=== PATIENT | female | born 1940 | race Caucasian/White ===

== ENCOUNTER 2021-08-18 08:56 | Outpatient (RCR) | payer MEDICARE, BC, SELFPAY | END 2021-11-21 10:32 | disposition home or self-care (01) | PROVIDERS: PCP Physician Assistant Medical; Visit Provider Orthopaedic Surgery Sports Medicine | DX: M51.36 Other intervertebral disc degeneration, lumbar region (principal); Z51.89 Encounter for other specified aftercare | CPT/HCPCS: 97110; 97140; 97162 ==

== ENCOUNTER 2021-09-21 14:09 | Outpatient (CLI) | payer MEDICARE, BC, SELFPAY ==
--- NOTE | 2021-09-21 14:00 | CRLHL7_ITS ---
For Patients: As a result of the Century Cures Act, medical imaging exams and procedure reports are released immediately into your electronic medical record. You may view this report before your referring provider. If you have questions, please contact your health care provider. Indication: LLQ pain Technique: Postcontrast CT abdomen and pelvis. 63 cc Isovue 370 intravenous contrast and oral water. Please note that all CT scans at this facility use dose modulation, iterative reconstruction, and/or weight-based dosing when appropriate to reduce radiation dose to as low as reasonably achievable. Comparison: 08/23/2016 Findings: Mild scarring within both lung bases without pleural effusion. Mild motion artifact is present. Simple cyst within the medial liver measuring 1.5 cm, unchanged. Additional simple cyst within the inferior liver measuring 5 millimeters. Similar thickening of the left adrenal gland. Normal right adrenal gland. Normal kidneys. Spleen normal. Gallbladder normal. Scoliotic deformity. Atherosclerotic disease. No aneurysm. Bilateral hip replacement hardware. Stable subchondral cyst in the left acetabulum. Multilevel degenerative changes and facet degeneration. Similar appearance of the pancreas with area of decreased density associated with the inferior pancreatic head. This is considered incidental. No bowel obstruction. Excess colonic stool within the redundant colon. No diverticulitis. Impression: Probable constipation causing the patient`s symptoms. No mechanical bowel obstruction or inflammation. Please note that all CT scans at this facility use dose modulation, iterative reconstruction, and/or weight-based dosing when appropriate to reduce radiation dose to as low as reasonably achievable. Dictated by Markell Freeman MD @ 09/22/2021 9:29:13 AM (Electronically Signed)
[2021-09-21 14:44] LABS: Creatinine* 0.9 mg/dL (0.5-1.5); Estimated Glomerular Filt Rate 65 ml/min
== END 2021-09-21 14:10 | disposition home or self-care (01) ==
LOC: CT 14:11
PROVIDERS: PCP Physician Assistant Medical; Visit Provider Physician Assistant Medical
DX: R10.32 Left lower quadrant pain (principal); K59.00 Constipation, unspecified
CPT/HCPCS: 36415; 74177; 82565; Q9967

== ENCOUNTER 2021-12-12 09:56 | Outpatient (CLI) | payer MEDICARE, BC, SELFPAY ==
[2021-12-12 15:51] LABS: Albumin* 4.3 g/dL (3.3-5.0)
[2021-12-12 15:52] LABS: Chloride* 103 mmol/L (96-114); Potassium* 5.4 mmol/L (3.6-5.1); Sodium* 139 mmol/L (135-149)
[2021-12-12 15:54] LABS: Aspartate Amino Transferase* 32 U/L (12-35); Bilirubin Total* 0.4 mg/dL (0.1-1.5); Carbon Dioxide* 29 mmol/L (20-32); Cholesterol* 215 mg/dL (90-199); Creatinine* 0.9 mg/dL (0.5-1.5); Estimated Glomerular Filt Rate 65 ml/min; Total Protein* 6.5 g/dL (6.0-8.3)
[2021-12-12 15:55] LABS: Alanine Aminotransferase* 23 U/L (4-35); Alkaline Phosphatase* 64 U/L (40-150); Blood Urea Nitrogen* 27 mg/dL (7-30); Calcium* 9.2 mg/dL (8.4-10.6); Glucose* 83 mg/dL (60-115); HDL Cholesterol* 75 mg/dL (>=50); LDL Cholesterol Calculated 129 mg/dL (<100); Triglycerides* 55 mg/dL (40-149)
[2021-12-12 16:52] LABS: Vitamin D 25 Hydroxy* 84 ng/mL (30-80)
== END 2021-12-12 09:57 | disposition home or self-care (01) ==
PROVIDERS: PCP Physician Assistant Medical; Visit Provider Physician Assistant Medical
DX: I10 Essential (primary) hypertension (principal); M81.0 Age-related osteoporosis without current pathological fracture; M19.049 Primary osteoarthritis, unspecified hand; Z13.6 Encounter for screening for cardiovascular disorders
CPT/HCPCS: 80053; 80061; 82306; 84443

== ENCOUNTER 2021-12-21 14:21 | Outpatient (CLI) | payer MEDICARE, BC, SELFPAY ==
--- NOTE | 2021-12-21 14:30 | CRLHL7_ITS ---
For Patients: As a result of the Century Cures Act, medical imaging exams and procedure reports are released immediately into your electronic medical record. You may view this report before your referring provider. If you have questions, please contact your health care provider. DXA BONE MINERAL DENSITY STUDY Reason for exam: Screening. Current height (in): 65. Weight (lb): 127. Menopause age: 46. Ethnicity: White. 1. Have you had a previous hip or vertebral fracture? No. 2. Have you had any fractures during your adult life which did not result from significant trauma (e.g., auto accident)? Yes. 3. Did either of your parents have a hip fracture? No. 4. Do you smoke? No. 5. Have you ever taken Glucocorticoids? No. 6. Do you have rheumatoid arthritis? No. 7. Do you have secondary osteoporosis? No. 8. Do you drink 3 or more alcoholic drinks per day? No. 9. Are you being treated for osteoporosis? No. 10. Have you ever taken any of the following medications: Actonel, Evista, Fosamax, Miacalcin, Reclast, Boniva, Forteo, HRT (i.e., estrogen/hormone therapy), Protelos, Prolia, Vitamin D, Calcium, other ??? please specify. ANSWER: Yes, Fosamax, vitamin D, and calcium. 11. Do you have any of the following medical conditions: Anorexia or bulimia, asthma or emphysema, end stage renal disease, hyperparathyroidism, any seizure disorders, cancer, inflammatory bowel diseases, hysterectomy, other ??? please specify. ANSWER: Yes, hysterectomy. 12. What was your maximum height (inches)? 66. 13. Do you perform weight bearing exercise regularly? No. 14. Do you regularly consume dairy products? Yes. 15. Do you drink caffeinated beverages? Yes. If female: 16. At what age did your period start? 14. 17. Are you premenopausal? No. 18. How many full-term pregnancies have you had? 2. 19. Have you ever missed your period for more than 6 months in a row (not including or menopause)? No. TECHNIQUE: Bone mineral density study was performed using the [employer]. FINDINGS: The results of the study expressed as bone mineral density (BMD) are as follows: Lumbar spine L1: BMD: 1.031 g/cm2. T-score: 0.4. Z-score: 2.8 Radius Right 33%: BMD: 0.567 g/cm2. T-score: -2.1. Z-score: 1.1 Left 33%: BMD: 0.548 g/cm2. T-score: -2.4. Z-score: 0.8 IMPRESSION: Osteopenia. *Comparison exams done prior to 07/2019 were performed on different unit, [facility]. COMPARISON: Compared with scan of 08/27/2019, the bone mineral density has increased by 13.3 percent at the spine and increased by 8.0 percent at the left radius. Compared with scan of 11/11/2017, the bone mineral density has increased by 2.1 percent at the spine. Markell Freeman M.D. Diagnostic Radiologist [email or web address] [place]/[email or web address]/Dictated by: Markell Freeman MD @ 12/22/2021 8:18:00 AM (Electronically Signed)
== END 2021-12-21 14:22 | disposition home or self-care (01) ==
LOC: RAD 14:22
PROVIDERS: PCP Physician Assistant Medical; Visit Provider Physician Assistant Medical
DX: Z13.820 Encounter for screening for osteoporosis (principal); M85.89 Other specified disorders of bone density and structure, multiple sites; Z78.0 Asymptomatic menopausal state
CPT/HCPCS: 77080

== ENCOUNTER 2022-02-13 06:53 | Outpatient (CLI) | payer MEDICARE, BC, SELFPAY ==
[2022-02-13 22:11] LABS: Vitamin D 25 Hydroxy* 83 ng/mL (30-80)
== END 2022-02-13 06:54 | disposition home or self-care (01) ==
PROVIDERS: PCP Physician Assistant Medical; Visit Provider Physician Assistant Medical
DX: M81.0 Age-related osteoporosis without current pathological fracture (principal)
CPT/HCPCS: 82306

== ENCOUNTER 2022-06-21 10:27 | Outpatient (CLI) | payer MEDICARE, BC, SELFPAY | END 2022-06-21 10:28 | disposition home or self-care (01) | LOC: NFLDREF 06-25 09:05 | PROVIDERS: PCP Physician Assistant Medical; Referring Provider Physician Assistant Medical; Visit Provider Physician Assistant Medical | DX: E55.9 Vitamin D deficiency, unspecified (principal); M81.0 Age-related osteoporosis without current pathological fracture | CPT/HCPCS: 82306 ==

== ENCOUNTER 2023-01-22 10:11 | Outpatient (CLI) | payer MEDICARE, BC, SELFPAY | END 2023-01-22 10:12 | disposition home or self-care (01) | LOC: NFLDREF 01-23 05:25 | PROVIDERS: PCP Physician Assistant Medical; Referring Provider Physician Assistant Medical; Visit Provider Physician Assistant Medical | DX: I10 Essential (primary) hypertension (principal); I25.2 Old myocardial infarction | CPT/HCPCS: 80053; 80061; 84443 ==

== ENCOUNTER 2023-06-18 14:45 | Emergency (ER) | payer MEDICARE, BC, SELFPAY ==
[2023-06-18 14:51] VITALS: BP 180/82; PULSE 74; RESP 18; TEMP 36.7; O2SAT 92; BMI 20.6
--- NOTE | 2023-06-18 15:15 | MR_ITS ---
Patient: YANIRA SANTIAGO Facility:?[facility] Patient ID:?[id number] Site Patient ID:?[id number]. Site :?[id number] Study:?MRI-Head W/O-06/18/2023 5:35:53 PM Ordering Physician:MICHAEL BAIN Final Report: Indication: Balance problems Technique: Multiplanar, multisequence MRI of the brain obtained without contrast. Comparison: MRI brain 06/17/2020 Findings: Mild diffuse prominence of the ventricles and cortical sulci, compatible with generalized cerebral volume loss. Scattered FLAIR hyperintense foci throughout the supratentorial white matter, typical of mild chronic microangiopathy. No acute/subacute ischemia, intracranial hemorrhage, or abnormal extra-axial fluid collection. No midline shift, hydrocephalus, or herniation. Major expected intracranial flow voids are preserved. Midline structures are unremarkable. No paranasal sinus air-fluid level or mastoid effusion. Unremarkable orbits. Impression: 1. No evidence of acute intracranial abnormality. 2. Mild generalized cerebral volume loss and mild chronic microangiopathy changes. Dictated by Avril Beard MD @ 06/18/2023 5:53:17 PM Signed by:?Avril Beard MD @06/18/2023 5:53:17 PM (Electronic Signature)
[2023-06-18 15:20] VITALS: RESP 16
[2023-06-18 15:43] LABS: Basophils Absolute Auto 0.03 K/uL (0.00-0.30); Basophils Percent Auto 0.4 % (0.0-3.0); Eosinophils Absolute Auto 0.13 K/uL (0.00-0.50); Eosinophils Percent Auto 1.6 % (0.0-7.0); Hematocrit 37.8 % (33.0-51.0); Hemoglobin* 12.3 gm/dL (12.0-16.0); Immature Granulocytes Abs Auto 0.08 K/uL (0.00-0.30); Mean Corpuscular HGB Conc 33 gm/dL (32-36); Mean Corpuscular Hemoglobin 30 pg (26-34); Mean Corpuscular Volume 93 fL (80-100); Monocytes Percent Auto 6.2 % (0.0-11.0); Neutrophils Absolute Auto 5.65 K/uL (1.7-7.0); Neutrophils Percent Auto 69.8 % (42.0-72.0); Platelet Count* 266 K/uL (140-440); RDW Coefficient of Variation % 12.4 % (11.5-15.5); Red Blood Count 4.05 m/uL (4.00-5.20); White Blood Count* 8.09 K/uL (4.50-11.00)
--- NOTE | 2023-06-18 15:43 | ED_ITS ---
HPI - General Adult General Date Seen: 06/18/23 Chief complaint: Unspecified Complaint, Adult Stated complaint: Upper L side pain, lightheaded Time Seen by Provider: 06/18/23 14:45 Source: patient, RN notes reviewed and old records reviewed Mode of arrival: ambulatory Limitations: no limitations History of Present Illness HPI narrative: Patient is an 83-year-old woman who presents on advice of the clinic for evaluation of feeling ?off today. She says ever since she woke up this morning she has felt just a little shaky, she feels like her walk is a little bit wobbly. She does have a history of vertigo and says it feels similar to that although she really does not describe any actual vertigo. She has had mild lightheadedness but has not felt faint. She denies any headache, chest pain, palpitations, shortness of breath, vomiting, diarrhea, black or bloody stools, fever or other acute problems. She has not noted any focal neurologic deficits. She tells me that a year 2 ago she had 2 hospitalizations at [facility] related to hypertension. They evaluated her for stroke and heart attack. She says that they tried to do an angiogram and were unable, but a stress test was done and was normal. She was told that she did not have evidence of stroke. She takes a baby aspirin daily, no other anticoagulation. She says blood pressure has been well controlled since that time. She does not smoke or drink. She notes that she has had some pain in her left lateral chest wall on and off for about a year, this tends to bother her when she lays on her left side primarily. She also has noted a burning type pain in both of her heels for the past few nights. This is not present during the day. She does not have a prior diagnosis of neuropathy. Related Data Home Medications Medication Instructions Recorded Confirmed acetaminophen 650 mg 1,300 mg PO Q12H PRN 09/13/21 01/24/23 tablet,extended release (Pain Relief (acetaminophen)) calcium carbonate (Calcium 600) 1,200 mg PO QDAY 09/13/21 01/24/23 multivitamin with minerals 1 tab PO QDAY 09/13/21 01/24/23 (Multiple Vitamin-Minerals tablet) vit C 250 mg-vit E 200 unit-zinc 1 tab PO BID 09/13/21 01/24/23 12.5 mg-copper 1 [id number] tablet (ICaps AREDS2 (copper citrate)) aspirin 81 mg tablet,delayed 81 mg PO QDAY 11/15/22 01/24/23 release Previous Rx's Medication Instructions Recorded nitroglycerin 0.4 mg sublingual 0.4 mg sublingual Q5-15M PRN chest 11/15/22 tablet pain #15 tabs isosorbide mononitrate 30 mg 30 mg PO QAM #90 tabs 01/02/23 tablet,extended release 24 hr spironolactone 25 mg tablet 25 mg PO QDAY #90 tabs 01/02/23 metoprolol tartrate 25 mg tablet 12.5 mg (1/2 x 25 mg) PO BID #90 01/15/23 tabs lisinopril 10 mg tablet 10 mg PO QHS #90 tabs 01/24/23 rosuvastatin 10 mg tablet 10 mg PO .qhs #90 tabs 01/24/23 nirmatrelvir 300 mg (150 mg See Rx Instructions PO .COMPLEX 02/04/23 x2)-ritonavir 100 mg tablet,dose #30 ea pack (Paxlovid) Allergies Allergy/AdvReac Type Severity Reaction Status Date / Time No Known Allergies Allergy Verified 01/24/23 10:15 Review of Systems Status of ROS: Reports: 10 or more systems reviewed and unremarkable except as noted in History and below [facility] Medical History Herpes zoster (12/26/09) ?B02.9 - Zoster without complications (ICD-10) Urinary tract infection ?N39.0 - Urinary tract infection, site not specified (ICD-10) Vertigo ?R42 - Dizziness and giddiness (ICD-10) History of herpes zoster ?Z86.19 - Personal history of other infectious and parasitic diseases (ICD- 10) Former smoker ?Z87.891 - Personal history of nicotine dependence (ICD-10) 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 - Malignant neoplasm of endometrium (ICD-10) Surgical History History of ankle surgery ?Z98.890 - Other specified postprocedural states (ICD-10) 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 - Presence of unspecified artificial hip joint (ICD-10) History of ankle surgery ?Z98.890 - Other specified postprocedural states (ICD-10) History of tumor ?Z87.898 - Personal history of other specified conditions (ICD-10) History of total hip replacement ?Z96.649 - Presence of unspecified artificial hip joint (ICD-10) History of hysterectomy ?Z90.710 - Acquired absence of both cervix and uterus (ICD-10) Family History Father Stroke, Onset Age: 84 Mother Diabetes Brother Diabetes Social History Narrative: Consumes alcohol occasionally Does not use illicit drugs Former smoker Smoking Status: Former smoker How often do you have a drink containing alcohol: never How often do you have six or more drinks on one occasion: Never AUDIT-C Alcohol total score: 0 Non-prescribed substance use: denies use Little interest or pleasure in doing things: several days Feeling down, depressed, or hopeless: not at all Exam Narrative: Exam Narrative: Vital signs as noted above. In general, an alert, well-appearing patient. Conversant, breathing easily. Head: Normocephalic, atraumatic. Eyes: Pupils are equal reactive. Extraocular movements are full. Conjunctivae are normal. No nystagmus. ENT: Mucous membranes are moist. Throat is normal. Neck: Supple without lymphadenopathy. Heart: Occasional ectopy, no significant murmur. Lungs: Clear bilaterally. No increased work of breathing, crackles or wheezes. Abdomen: Soft and nontender. Extremities: Well perfused. No edema. No calf tenderness. Pulses intact. Neurologic: Patient is alert and oriented to person and place. Speech is fl uent. Face is symmetric. Moves all extremities equally. Cerebellar function is intact by finger-nose testing, her gait appears slightly cautious but she does not seem overtly ataxic, gait is not wide-based. Affect: Normal. Skin: Warm and dry. Well perfused. Const: Vital Signs, click to edit/add: Vital Signs - 24 hr 06/18/23 14:51 06/18/23 15:20 Temperature 98.1 F Pulse Rate [Pulse Oximeter] 74 Respiratory Rate 18 Respiratory Rate [ Left Chest] 16 Blood Pressure [Ri ght Upper Arm] 180/82 H Pulse Oximetry 92 Oxygen Delivery Me thod Room Air Documenting provider has reviewed patient's vital signs: yes Course Course ED Course: Patient presents with somewhat nonspecific symptoms in the setting of a nonfocal neurologic exam. I have recommended that we do an MRI to rule out the possibility of a tiny stroke. Other diagnostic considerations include infection or metabolic derangement, labs and EKG ordered. She is on a number of new medications, none are new recently. Labs are reassuring. White blood cell count is 8, hemoglobin 12.3. Metabolic panel is within normal limits, glucose is 145. Lactate 1.6. CRP less than 0.5. LFTs are unremarkable TSH is 0.329. Vitamin B12 level is normal at 692, folate level is pending. A fairly short WA but I do not see evidence of delta waves. She was comfortable while here in the emergency department without significant complaints. She is ambulatory around the room without difficulty. She had MRI which is read as follows by Radiology:Findings: Mild diffuse prominence of the ventricles and cortical sulci, compatible with generalized cerebral volume loss. Scattered FLAIR hyperintense foci throughout the supratentorial white matter, typical of mild chronic microangiopathy. No acute/subacute ischemia, intracranial hemorrhage, or abnormal extra-axial fluid collection. No midline shift, hydrocephalus, or herniation. Major expected intracranial flow voids are preserved. Midline structures are unremarkable. No paranasal sinus air-fluid level or mastoid effusion. Unremarkable orbits. Impression: 1. No evidence of acute intracranial abnormality. 2. Mild generalized cerebral volume loss and mild chronic microangiopathy changes. I reviewed all of this with her. She is relieved to know that there does not appear to be anything serious going on at this time. Discussed with her I do not have a clear explanation for why she is feeling little bit off these past couple days, but thus far I think it is reasonable to discharge home, recommend primary care follow-up both to follow-up on the remaining lab as well as to recheck symptoms. If at any time she feels acutely worse, has new symptoms such as fever, vomiting, specific neurologic changes, return to the emergency department. Vital Signs Vital signs: Initial Vital Signs Temperature 98.1 F 06/18/23 14:51 Temperature Source Temporal Artery Scan 06/18/23 14:51 Pulse Rate 74 04/30/24 14:51 Respiratory Rate 18 06/18/23 14:51 Blood Pressure 180/82 H 06/18/23 14:51 Blood Pressure Mean 114 H 06/18/23 14:51 Pulse Oximetry 06/18/23 14:51 Oxygen Delivery Method Room Air 06/18/23 14:51 Vital Signs Temperature 98.1 F 06/18/23 14:51 Pulse Rate 74 06/18/23 14:51 Respiratory Rate 18 06/18/23 14:51 Blood Pressure 180/82 H 06/18/23 14:51 Pulse Oximetry 92 06/18/23 14:51 Oxygen Delivery Method Room Air 06/18/23 14:51 Temperature 98.1 F 06/18/23 14:51 Pulse Rate 74 06/18/23 14:51 Respiratory Rate 16 06/18/23 15:20 Blood Pressure 180/82 H 06/18/23 14:51 Pulse Oximetry 06/18/23 14:51 Oxygen Delivery Method Room Air 06/18/23 14:51 Medical Decision Making Lab Data Labs: Lab Results 06/18/23 06/18/23 06/18/23 Range/Units 15:30 15:30 15:30 WBC 8.09 (4.50-11.00) K/uL RBC 4.05 (4.00-5.20) m/uL Hgb 12.3 (12.0-16.0) gm/dL Hct 37.8 (33.0-51.0) % MCV 93 (80-100) fL MCH 30 (26-34) pg MCHC 33 (32-36) gm/dL RDW Coeff of Emelina 12.4 (11.5-15.5) % Plt Count 266 (140-440) K/uL Neut % (Auto) 69.8 (42.0-72.0) % Lymph % (Auto) 21.0 (20-44) % [place] % (Auto) 6.2 (0.0-11.0) % Eos % (Auto) 1.6 (0.0-7.0) % Baso % (Auto) 0.4 (0.0-3.0) % Neut # (Auto) 5.65 (1.7-7.0) K/uL Lymph # (Auto) 1.70 (0.90-2.90) K/uL [place] # (Auto) 0.50 (0.00-0.90) K/UL Eos # (Auto) 0.13 (0.00-0.50) K/uL Baso # (Auto) 0.03 (0.00-0.30) K/uL Abs Immat Gran (auto) 0.08 (0.00-0.30) K/uL Imm/Tot Granulo (auto) 1.0 % Sodium 137 137 (135-149) mmol/L Potassium 4.3 4.6 (3.6-5.1) mmol/L Chloride 106 (96-114) mmol/L Carbon Dioxide (20-32) mmol/L Anion Gap (7-15) mEq/L BUN (7-30) mg/dL Creatinine (0.5-1.5) mg/dL Estimated Creat Clear Estimated GFR ml/min Glucose (60-115) mg/dL Lactate (0.5-1.9) mmol/L Calcium (8.4-10.6) mg/dL Total Bilirubin (0.1-1.5) mg/dL Direct Bilirubin (0.0-0.5) mg/dL AST (12-35) U/L ALT (4-35) U/L Alkaline Phosphatase (40-150) U/L C-Reactive Protein (0.5-1.0) mg/dL Total Protein (6.0-8.3) g/dL Albumin (3.3-5.0) g/dL Vitamin B12 (243-894) pg/mL TSH POC Troponin I (0.01-0.04) ng/ml 06/18/23 06/18/23 06/18/23 Range/Units 15:30 15:30 15:30 WBC (4.50-11.00) K/uL RBC (4.00-5.20) m/uL Hgb (12.0-16.0) gm/dL Hct (33.0-51.0) % MCV (80-100) fL MCH (26-34) pg MCHC (32-36) gm/dL RDW Coeff of Emelina (11.5-15.5) % Plt Count (140-440) K/uL Neut % (Auto) (42.0-72.0) % Lymph % (Auto) (20-44) % [place] % (Auto) (0.0-11.0) % Eos % (Auto) (0.0-7.0) % Baso % (Auto) (0.0-3.0) % Neut # (Auto) (1.7-7.0) K/uL Lymph # (Auto) (0.90-2.90) K/uL [place] # (Auto) (0.00-0.90) K/UL Eos # (Auto) (0.00-0.50) K/uL Baso # (Auto) (0.00-0.30) K/uL Abs Immat Gran (auto) (0.00-0.30) K/uL Imm/Tot Granulo (auto) % Sodium (135-149) mmol/L Potassium (3.6-5.1) mmol/L Chloride 104 (96-114) mmol/L Carbon Dioxide 24 22 (20-32) mmol/L Anion Gap 7 11 (7-15) mEq/L BUN 28 (7-30) mg/dL Creatinine (0.5-1.5) mg/dL Estimated Creat Clear Estimated GFR ml/min Glucose (60-115) mg/dL Lactate (0.5-1.9) mmol/L Calcium (8.4-10.6) mg/dL Total Bilirubin (0.1-1.5) mg/dL Direct Bilirubin (0.0-0.5) mg/dL AST (12-35) U/L ALT (4-35) U/L Alkaline Phosphatase (40-150) U/L C-Reactive Protein (0.5-1.0) mg/dL Total Protein (6.0-8.3) g/dL Albumin (3.3-5.0) g/dL Vitamin B12 (243-894) pg/mL TSH POC Troponin I (0.01-0.04) ng/ml 06/18/23 06/18/23 06/18/23 Range/Units 15:30 15:30 15:30 WBC (4.50-11.00) K/uL RBC (4.00-5.20) m/uL Hgb (12.0-16.0) gm/dL Hct (33.0-51.0) % MCV (80-100) fL MCH (26-34) pg MCHC (32-36) gm/dL RDW Coeff of Emelina (11.5-15.5) % Plt Count (140-440) K/uL Neut % (Auto) (42.0-72.0) % Lymph % (Auto) (20-44) % [place] % (Auto) (0.0-11.0) % Eos % (Auto) (0.0-7.0) % Baso % (Auto) (0.0-3.0) % Neut # (Auto) (1.7-7.0) K/uL Lymph # (Auto) (0.90-2.90) K/uL [place] # (Auto) (0.00-0.90) K/UL Eos # (Auto) (0.00-0.50) K/uL Baso # (Auto) (0.00-0.30) K/uL Abs Immat Gran (auto) (0.00-0.30) K/uL Imm/Tot Granulo (auto) % Sodium (135-149) mmol/L Potassium (3.6-5.1) mmol/L Chloride (96-114) mmol/L Carbon Dioxide (20-32) mmol/L Anion Gap (7-15) mEq/L BUN 29 (7-30) mg/dL Creatinine 0.9 0.9 (0.5-1.5) mg/dL Estimated Creat Clear 38.51 38.51 Estimated GFR 64 ml/min Glucose (60-115) mg/dL Lactate (0.5-1.9) mmol/L Calcium (8.4-10.6) mg/dL Total Bilirubin (0.1-1.5) mg/dL Direct Bilirubin (0.0-0.5) mg/dL AST (12-35) U/L ALT (4-35) U/L Alkaline Phosphatase (40-150) U/L C-Reactive Protein (0.5-1.0) mg/dL Total Protein (6.0-8.3) g/dL Albumin (3.3-5.0) g/dL Vitamin B12 (243-894) pg/mL TSH POC Troponin I (0.01-0.04) ng/ml 06/18/23 06/18/23 06/18/23 Range/Units 15:30 15:30 15:30 WBC (4.50-11.00) K/uL RBC (4.00-5.20) m/uL Hgb (12.0-16.0) gm/dL Hct (33.0-51.0) % MCV (80-100) fL MCH (26-34) pg MCHC (32-36) gm/dL RDW Coeff of Emelina (11.5-15.5) % Plt Count (140-440) K/uL Neut % (Auto) (42.0-72.0) % Lymph % (Auto) (20-44) % [place] % (Auto) (0.0-11.0) % Eos % (Auto) (0.0-7.0) % Baso % (Auto) (0.0-3.0) % Neut # (Auto) (1.7-7.0) K/uL Lymph # (Auto) (0.90-2.90) K/uL [place] # (Auto) (0.00-0.90) K/UL Eos # (Auto) (0.00-0.50) K/uL Baso # (Auto) (0.00-0.30) K/uL Abs Immat Gran (auto) (0.00-0.30) K/uL Imm/Tot Granulo (auto) % Sodium (135-149) mmol/L Potassium (3.6-5.1) mmol/L Chloride (96-114) mmol/L Carbon Dioxide (20-32) mmol/L Anion Gap (7-15) mEq/L BUN (7-30) mg/dL Creatinine (0.5-1.5) mg/dL Estimated Creat Clear Estimated GFR 64 ml/min Glucose 150 H 145 H (60-115) mg/dL Lactate 1.6 (0.5-1.9) mmol/L Calcium 9.5 9.7 (8.4-10.6) mg/dL Total Bilirubin 0.3 (0.1-1.5) mg/dL Direct Bilirubin (0.0-0.5) mg/dL AST (12-35) U/L ALT (4-35) U/L Alkaline Phosphatase (40-150) U/L C-Reactive Protein (0.5-1.0) mg/dL Total Protein (6.0-8.3) g/dL Albumin (3.3-5.0) g/dL Vitamin B12 (243-894) pg/mL TSH POC Troponin I (0.01-0.04) ng/ml 06/18/23 06/18/23 06/18/23 Range/Units 15:30 15:30 15:30 WBC (4.50-11.00) K/uL RBC (4.00-5.20) m/uL Hgb (12.0-16.0) gm/dL Hct (33.0-51.0) % MCV (80-100) fL MCH (26-34) pg MCHC (32-36) gm/dL RDW Coeff of [place]el[place] (11.5-15.5) % Plt Count (140-440) K/uL Neut % (Auto) (42.0-72.0) % Lymph % (Auto) (20-44) % [place] % (Auto) (0.0-11.0) % Eos % (Auto) (0.0-7.0) % Baso % (Auto) (0.0-3.0) % Neut # (Auto) (1.7-7.0) K/uL Lymph # (Auto) (0.90-2.90) K/uL [place] # (Auto) (0.00-0.90) K/UL Eos # (Auto) (0.00-0.50) K/uL Baso # (Auto) (0.00-0.30) K/uL Abs Immat Gran (auto) (0.00-0.30) K/uL Imm/Tot Granulo (auto) % Sodium (135-149) mmol/L Potassium (3.6-5.1) mmol/L Chloride (96-114) mmol/L Carbon Dioxide (20-32) mmol/L Anion Gap (7-15) mEq/L BUN (7-30) mg/dL Creatinine (0.5-1.5) mg/dL Estimated Creat Clear Estimated GFR ml/min Glucose (60-115) mg/dL Lactate (0.5-1.9) mmol/L Calcium (8.4-10.6) mg/dL Total Bilirubin 0.2 (0.1-1.5) mg/dL Direct Bilirubin 0.1 0.1 (0.0-0.5) mg/dL AST 29 28 (12-35) U/L ALT 22 (4-35) U/L Alkaline Phosphatase (40-150) U/L C-Reactive Protein (0.5-1.0) mg/dL Total Protein (6.0-8.3) g/dL Albumin (3.3-5.0) g/dL Vitamin B12 (243-894) pg/mL TSH POC Troponin I (0.01-0.04) ng/ml 06/18/23 06/18/23 06/18/23 Range/Units 15:30 15:30 15:30 WBC (4.50-11.00) K/uL RBC (4.00-5.20) m/uL Hgb (12.0-16.0) gm/dL Hct (33.0-51.0) % MCV (80-100) fL MCH (26-34) pg MCHC (32-36) gm/dL RDW Coeff of [place]el[place] (11.5-15.5) % Plt Count (140-440) K/uL Neut % (Auto) (42.0-72.0) % Lymph % (Auto) (20-44) % [place] % (Auto) (0.0-11.0) % Eos % (Auto) (0.0-7.0) % Baso % (Auto) (0.0-3.0) % Neut # (Auto) (1.7-7.0) K/uL Lymph # (Auto) (0.90-2.90) K/uL [place] # (Auto) (0.00-0.90) K/UL Eos # (Auto) (0.00-0.50) K/uL Baso # (Auto) (0.00-0.30) K/uL Abs Immat Gran (auto) (0.00-0.30) K/uL Imm/Tot Granulo (auto) % Sodium (135-149) mmol/L Potassium (3.6-5.1) mmol/L Chloride (96-114) mmol/L Carbon Dioxide (20-32) mmol/L Anion Gap (7-15) mEq/L BUN (7-30) mg/dL Creatinine (0.5-1.5) mg/dL Estimated Creat Clear Estimated GFR ml/min Glucose (60-115) mg/dL Lactate (0.5-1.9) mmol/L Calcium (8.4-10.6) mg/dL Total Bilirubin (0.1-1.5) mg/dL Direct Bilirubin (0.0-0.5) mg/dL AST (12-35) U/L ALT 22 (4-35) U/L Alkaline Phosphatase 51 50 (40-150) U/L C-Reactive Protein < 0.5 L < 0.5 L (0.5-1.0) mg/dL Total Protein 6.8 (6.0-8.3) g/dL Albumin (3.3-5.0) g/dL Vitamin B12 (243-894) pg/mL TSH POC Troponin I (0.01-0.04) ng/ml 06/18/23 06/18/23 06/18/23 Range/Units 15:30 15:30 15:30 WBC (4.50-11.00) K/uL RBC (4.00-5.20) m/uL Hgb (12.0-16.0) gm/dL Hct (33.0-51.0) % MCV (80-100) fL MCH (26-34) pg MCHC (32-36) gm/dL RDW Coeff of [place]el[place] (11.5-15.5) % Plt Count (140-440) K/uL Neut % (Auto) (42.0-72.0) % Lymph % (Auto) (20-44) % [place] % (Auto) (0.0-11.0) % Eos % (Auto) (0.0-7.0) % Baso % (Auto) (0.0-3.0) % Neut # (Auto) (1.7-7.0) K/uL Lymph # (Auto) (0.90-2.90) K/uL [place] # (Auto) (0.00-0.90) K/UL Eos # (Auto) (0.00-0.50) K/uL Baso # (Auto) (0.00-0.30) K/uL Abs Immat Gran (auto) (0.00-0.30) K/uL Imm/Tot Granulo (auto) % Sodium (135-149) mmol/L Potassium (3.6-5.1) mmol/L Chloride (96-114) mmol/L Carbon Dioxide (20-32) mmol/L Anion Gap (7-15) mEq/L BUN (7-30) mg/dL Creatinine (0.5-1.5) mg/dL Estimated Creat Clear Estimated GFR ml/min Glucose (60-115) mg/dL Lactate (0.5-1.9) mmol/L Calcium (8.4-10.6) mg/dL Total Bilirubin (0.1-1.5) mg/dL Direct Bilirubin (0.0-0.5) mg/dL AST (12-35) U/L ALT (4-35) U/L Alkaline Phosphatase (40-150) U/L C-Reactive Protein (0.5-1.0) mg/dL Total Protein 6.5 (6.0-8.3) g/dL Albumin 4.3 4.2 (3.3-5.0) g/dL Vitamin B12 692 (243-894) pg/mL TSH Cancelled 0.329 POC Troponin I 0.00 L (0.01-0.04) ng/ml Discharge Plan Discharge Clinical Impression: Weakness Patient Disposition: Home, Self-Care Condition: Stable Instructions: Weakness (ED) Additional Instructions: Your test today are all reassuring. Your labs are normal. I did order testing for vitamin B12 and folate levels as deficiencies in these can lead to neuropathy. Your MRI of your brain is normal. You have some changes that are very typical for age, and no acute findings such as stroke or mass. I would recommend you follow-up with your primary doctor in the coming week. Your remaining labs should be followed up with your primary doctor. For worsening or new symptoms, return at any time to the emergency department. Prescriptions: No Action Multiple Vitamin-Minerals Tablet 1 tab PO QDAY ICaps AREDS2 (copper citrate) 250 mg-200 unit -12.5 mg-1 mg tablet 1 tab PO BID calcium carbonate [Calcium 600] 600 mg calcium (1,500 mg) tablet 1,200 mg PO QDAY acetaminophen [Pain Relief (acetaminophen)] 650 mg tablet extended release 1,300 mg PO Q12H PRN rosuvastatin 10 mg tablet 10 mg PO .qhs Qty: 90 3RF lisinopril 10 mg tablet 10 mg PO QHS Qty: 90 3RF aspirin 81 mg tablet,delayed release (DR/EC) 81 mg PO QDAY nitroglycerin 0.4 mg tablet, sublingual 0.4 mg sublingual Q5-15M PRN (Reason: chest pain) Qty: 15 0RF Rx Instructions: do not exceed 3 doses per episode isosorbide mononitrate 30 mg tablet extended release 24 hr 30 mg PO QAM Qty: 90 3RF spironolactone 25 mg tablet 25 mg PO QDAY Qty: 90 3RF metoprolol tartrate 25 mg tablet 12.5 mg PO BID Qty: 90 1RF Paxlovid 300 mg (150 mg x 2)-100 mg tablets,dose pack See Rx Instructions PO .COMPLEX Qty: 30 0RF Rx Instructions: take TWO 150 mg tablets of nirmatrelvir with ONE 100 mg tablet of ritonavir twice daily for 5 days PO Follow Up/Referrals: Steve Villalobos PA-C [Primary Care Provider] - Stand Alone Forms: [facility] Info Instructions
[2023-06-18 15:58] LABS: Albumin* 4.3 g/dL (3.3-5.0); Chloride* 106 mmol/L (96-114); Sodium* 137 mmol/L (135-149)
[2023-06-18 15:59] LABS: Potassium* 4.3 mmol/L (3.6-5.1)
[2023-06-18 16:01] LABS: Alkaline Phosphatase* 51 U/L (40-150); Anion Gap 7 mEq/L (7-15); Aspartate Amino Transferase* 29 U/L (12-35); Bilirubin Direct* 0.1 mg/dL (0.0-0.5); Bilirubin Total* 0.3 mg/dL (0.1-1.5); Carbon Dioxide* 24 mmol/L (20-32); Creatinine* 0.9 mg/dL (0.5-1.5); Est. Creatinine Clearance* 38.51; Estimated Glomerular Filt Rate 64 ml/min; Total Protein* 6.8 g/dL (6.0-8.3)
[2023-06-18 16:02] LABS: Alanine Aminotransferase* 22 U/L (4-35); Blood Urea Nitrogen* 28 mg/dL (7-30); Calcium* 9.5 mg/dL (8.4-10.6); Glucose* 150 mg/dL (60-115)
[2023-06-18 16:15] LABS: Slide Review Reflex No
[2023-06-18 16:17] LABS: Lactate Sepsis w/Reflex* 1.6 mmol/L (0.5-1.9)
[2023-06-18 16:25] LABS: C Reactive Protein* < 0.5 mg/dL (0.5-1.0)
[2023-06-18 17:05] LABS: Albumin* 4.2 g/dL (3.3-5.0); Chloride* 104 mmol/L (96-114)
[2023-06-18 17:06] LABS: Potassium* 4.6 mmol/L (3.6-5.1); Sodium* 137 mmol/L (135-149)
[2023-06-18 17:08] LABS: Creatinine* 0.9 mg/dL (0.5-1.5); Est. Creatinine Clearance* 38.51; Estimated Glomerular Filt Rate 64 ml/min
[2023-06-18 17:09] LABS: Alanine Aminotransferase* 22 U/L (4-35); Alkaline Phosphatase* 50 U/L (40-150); Anion Gap 11 mEq/L (7-15); Aspartate Amino Transferase* 28 U/L (12-35); Bilirubin Direct* 0.1 mg/dL (0.0-0.5); Bilirubin Total* 0.2 mg/dL (0.1-1.5); Blood Urea Nitrogen* 29 mg/dL (7-30); Calcium* 9.7 mg/dL (8.4-10.6); Carbon Dioxide* 22 mmol/L (20-32); Glucose* 145 mg/dL (60-115); Total Protein* 6.5 g/dL (6.0-8.3)
[2023-06-18 17:38] LABS: C Reactive Protein* < 0.5 mg/dL (0.5-1.0)
[2023-06-18 17:40] LABS: TSH With Reflex to FT4* 0.329 uIU/mL (0.270-4.200)
[2023-06-18 17:58] LABS: Vitamin B12* 692 pg/mL (243-894)
[2023-06-20 14:53] LABS: Folate, Serum >22.3 ng/mL (>=5.9)
== END 2023-06-18 18:14 | disposition home or self-care (01) ==
PROVIDERS: Emergency Provider Emergency Medicine; PCP Physician Assistant Medical
DX: R53.1 Weakness (principal)
CPT/HCPCS: 36415; 70551; 80048; 80076; 81001; 82607; 82746; 83605; 84443; 84484; 85025; 86140; 93005; 99284; 99285

== ENCOUNTER 2023-06-21 09:19 | Outpatient (RCR) | payer MEDICARE, BC, SELFPAY ==
--- NOTE | 2023-06-21 11:11 | PT.OPE ---
PT [facility] [place] [facility] Eval PT [facility] Outpatient Eval Start: 06/21/23 09:00 Freq: Status: Active Protocol: Document 06/21/23 11:04 CJT (Rec: 06/21/23 11:09 CJT [id number]) E-signed By Randal Stevenson PT Physical Therapy Outpatient Evaluation Insurance Information Recert Due Date 08/20/23 Insurance Name Medicare B Medical Diagnosis R42 - dizziness and giddiness Treating Diagnosis R42 - dizziness and giddiness Referring Steve Corral PAC Subjective Subjective Pt reports she started to walk a little crooked. Ears feel plugged. Pt reports feeling a little off and dizzy. Dizziness comes and goes. Standing up out of the chair in the lobby made her feel a bit dizzy. She does correct herself and note that she feels lightheadedness. Date of Last Physician Visit 06/19/23 Current Work Status Retired Preferred Name Bibiana Precautions Therapy Limitations/Systems Review Not Limited Objective Other/Pertinent Objective Cervical ROM Extension - 22 Flexion - 44 R/L Sidebend - 23/14 R/L Rotation - 44/57 Oculomotor Testing Gaze Stabilization: negative Smooth Pursuits: negative Saccades: negative Convergence: negative Head Shake: negative Head Thrust: negative Positional Testing -R [place]-Hallpike: negative for nystagmus and report of dizziness -L [place]-Hallpike: negative for nystagmus and report of dizziness -R Roll: negative for nystagmus and report of dizziness -L Roll: negative for nystagmus and report of dizziness Modified Romberg -Eyes open, firm surface: No sway -Eyes closed, firm surface: normal sway -Eyes open, foam surface: normal sway -Eyes closed, foam surface: normal sway Blood Pressure Supine: 110/68 Sittin/62 (102/59) Standin/64 (89/54) Assessment Assessment/Impression Bibiana is a very pleasant 83 year old female who presents to our clinic for evaluation of dizziness. Pt describes her symptoms as lightheadedness but has had BPPV in the past. Today's evaluation was negative for BPPV. All positional and oculomotor testing was negative for nystagmus and report of dizziness. Pts balance was good with eyes opened and closed on solid and soft surfaces. Pts lightheadedness appears to be due to orthostatic hypotension. Pts blood pressure reading's were as follows: Supine (110/68 mmHg), Sitting (102/59 mmHg), Standing (89/54 mmHg). I did discuss with Bibiana the importance of drinking fluids throughout the day, not just coffee in the AM. She reports that she has only recently started to think about drinking water during the day. With her history of cardiac issues and current blood pressure medications, I did encourage her to reach out to Steve Villalobos or one of her nurses for consultation on her medications and if increasing fluid intake is appropriate for her - Pt gives verbal understanding. Due to today's findings, I do not feel it is appropriate for Bibiana to return for current symptoms. Because she has had episodes of BPPV in the past, I will keep her chart open for 60 days so that she may return in case she does develop true vertigo symptoms. Hold chart. Primary Functional Limitations Transfers (sit to stand) Plan of Care Rehabilitation Potential Not Applicable Physical Therapy Goals Goals not appropriate at this time. Treatment Plan/Direct Interventions Other - See Comments Direct Interventions Clarification No treatment required Comments currently. Frequency/Duration As needed. Patient Will Be Discharged From Therapy Completion of LTG(s),Skills Plateau,Independent w/HEP, Independently Progressing Evaluation Billing Untimed Code Treatment Minutes 60 PT Eval No Charge No Complexity Low Certification Information Initial Certification Date 06/21/23 Ending Certification Date 09/19/23 Provider Signature Shows Agreement With POC & Medical Necessity Physician Signature & Date Requested Please Sign/Date Here Physician Comment/Change : Physician NPI Number #
== END 2023-09-24 11:33 | disposition home or self-care (01) ==
PROVIDERS: PCP Physician Assistant Medical; Visit Provider Physician Assistant Medical
DX: R42 Dizziness and giddiness (principal); Z51.89 Encounter for other specified aftercare
CPT/HCPCS: 97161

== ENCOUNTER 2023-12-10 09:45 | Outpatient (CLI) | payer MEDICARE, BC, SELFPAY | END 2023-12-10 09:46 | disposition home or self-care (01) | PROVIDERS: PCP Physician Assistant Medical; Visit Provider Physician Assistant Medical | DX: I10 Essential (primary) hypertension (principal); E78.5 Hyperlipidemia, unspecified; R42 Dizziness and giddiness; M81.0 Age-related osteoporosis without current pathological fracture; M19.90 Unspecified osteoarthritis, unspecified site | CPT/HCPCS: 80053; 84443 ==

== ENCOUNTER 2023-12-26 10:15 | Outpatient (CLI) | payer MEDICARE, BC, SELFPAY | END 2023-12-26 10:16 | disposition home or self-care (01) | LOC: NFLDREF 12-30 12:15 | PROVIDERS: PCP Physician Assistant Medical; Referring Provider Physician Assistant Medical; Visit Provider Physician Assistant Medical | DX: E78.5 Hyperlipidemia, unspecified (principal) | CPT/HCPCS: 80061 ==

== ENCOUNTER 2024-05-14 09:03 | Outpatient (CLI) | payer MEDICARE, BC, SELFPAY ==
--- NOTE | 2024-05-14 09:00 | CRLHL7_ITS ---
For Patients: As a result of the Century Cures Act, medical imaging exams and procedure reports are released immediately into your electronic medical record. You may view this report before your referring provider. If you have questions, please contact your health care provider. DXA BONE MINERAL DENSITY STUDY Current height (in): 65. Weight (lb): 127. Menopause age: 46. Ethnicity: White. 1. Have you had a previous hip or vertebral fracture? No. 2. Have you had any fractures during your adult life which did not result from significant trauma (e.g., auto accident)? Yes. 3. Did either of your parents have a hip fracture? No. 4. Do you smoke? No. 5. Have you ever taken Glucocorticoids? No. 6. Do you have rheumatoid arthritis? No. 7. Do you have secondary osteoporosis? Yes. 8. Do you drink 3 or more alcoholic drinks per day? No. 9. Are you being treated for osteoporosis? Yes. 10. Have you ever taken any of the following medications: Actonel, Evista, Fosamax, Miacalcin, Reclast, Boniva, Forteo, HRT (i.e. estrogen/hormone therapy), Protelos, Prolia, Vitamin D, Calcium, other ??? please specify. Yes, Fosamax, Vitamin D, Calcium. 11. Do you have any of the following medical conditions: Anorexia or bulimia, asthma or emphysema, end stage renal disease, hyperparathyroidism, any seizure disorders, cancer, inflammatory bowel diseases, hysterectomy, other ??? please specify. Yes, Hysterectomy. 12. What was your maximum height (inches)? 66. 13. Do you perform weight bearing exercise regularly? No. 14. Do you regularly consume dairy products? Yes. 15. Do you drink caffeinated beverages? Yes. 16. At what age did your period start? 14. 17. Are you premenopausal? No. 18. How many full term pregnancies have you had? 3. 19. Have you ever missed your period for more than 6 months in a row (not including or menopause)? No. TECHNIQUE: Bone mineral density study was performed using the [employer]. FINDINGS: The results of the study expressed as bone mineral density (BMD) are as follows: Lumbar spine L1 BMD: 1.140 g/cm2. T-score: 1.4. Z-score: 3.8. Radius Right 33%: BMD: 0.550 g/cm2. T-score: -2.4. Z-score: 1.1. Left 33%: BMD: 0.529 g/cm2. T-score: -2.8. Z-score: 0.8. IMPRESSION: Osteoporosis. COMPARISON: Compared with scan of 12/21/2021, the bone mineral density has increased by 10.6 percent at the spine and decreased by 3.1 percent at the right forearm and decreased by 3.4 percent at the left forearm. Compared with scan of 08/27/2019, the bone mineral density has increased by 13.3 percent at the spine and increased by 8.0 percent at the left forearm. Maury Norton M.D. Diagnostic Radiologist [email or web address] MARIA T/abbey / DW/Dictated by: Maury Norton MD @ 05/17/2024 7:40:00 AM (Electronically Signed)
--- NOTE | 2024-05-14 09:45 | CRLHL7_ITS ---
For Patients: As a result of the Century Cures Act, medical imaging exams and procedure reports are released immediately into your electronic medical record. You may view this report before your referring provider. If you have questions, please contact your health care provider. BILATERAL SCREENING MAMMOGRAM WITH COMPUTER-AIDED DETECTION AND TOMOSYNTHESIS TECHNIQUE: CC and MLO views were obtained. These mammographic images have been obtained using full-field digital technique. These mammographic images were interpreted with the benefit of computer-aided detection. Breast Tomosynthesis was used in this interpretation. COMPARISON FILM: 02/21/21, 05/03/19, 11/11/17. FINDINGS: There are scattered areas of fibroglandular density. IMPRESSION: There is no radiographic evidence for malignancy. ASSESSMENT: BI-RADS Category 1: Negative RECOMMENDATION: Routine screening mammogram in 1 year. A lay language report of this examination will be provided to the patient. Markell Freeman M.D. Diagnostic Radiologist [email or web address] SP/Dictated by: Markell Freeman MD @ 05/19/2024 1:12:00 PM (Electronically Signed)
== END 2024-05-14 09:04 | disposition home or self-care (01) ==
LOC: RAD 09:04
PROVIDERS: PCP Physician Assistant Medical; Visit Provider Physician Assistant Medical
DX: Z12.31 Encounter for screening mammogram for malignant neoplasm of breast (principal); Z78.0 Asymptomatic menopausal state; M81.0 Age-related osteoporosis without current pathological fracture
CPT/HCPCS: 77063; 77067; 77080

== ENCOUNTER 2024-06-02 13:00 | Outpatient (RCR) | payer MEDICARE, BC, SELFPAY | END 2024-09-30 23:59 | disposition home or self-care (01) | PROVIDERS: PCP Physician Assistant Medical; Visit Provider Physician Assistant Medical | DX: M54.50 Low back pain, unspecified (principal); G89.29 Other chronic pain; R26.81 Unsteadiness on feet; Z51.89 Encounter for other specified aftercare | CPT/HCPCS: 97110; 97140; 97162 ==

== ENCOUNTER 2024-11-23 08:59 | Outpatient (CLI) | payer MEDICARE, BC, SELFPAY | END 2024-11-23 09:00 | disposition home or self-care (01) | LOC: NFLDREF 11-24 17:31 | PROVIDERS: PCP Physician Assistant Medical; Referring Provider Physician Assistant Medical; Visit Provider Physician Assistant Medical | DX: G62.9 Polyneuropathy, unspecified (principal); E78.5 Hyperlipidemia, unspecified; I10 Essential (primary) hypertension | CPT/HCPCS: 80053; 80061; 82607; 84443 ==